=== PATIENT | female | born 1985 | race Caucasian/White ===

== ENCOUNTER 2020-09-02 07:53 | Outpatient (REF) | payer OTHER, SELFPAY ==
[2020-09-02 11:08] LABS: MANUAL DIFF FLAG NO
[2020-09-02 11:13] LABS: Basophils Absolute Auto 0.1 X10*3/uL (0.0-0.2); Eosinophils Absolute Auto 0.3 X10*3/uL (0.0-0.4); Eosinophils Percent Auto 3.9 % (0-4); Hematocrit 42.7 % (37-47); Imm Gran Abs Auto 0.03 X10*3/uL (0.00-0.03); Imm Gran Pct Auto 0.4 % (0.0-0.4); Lymphocytes Absolute Auto 2.4 X10*3/uL (1.2-4.9); Lymphocytes Percent Auto 33.7 % (20-40); Mean Corpuscular HGB Conc 32.8 g/dl (31.0-35.0); Mean Corpuscular Hemoglobin 29.2 pg (27.0-33.0); Mean Corpuscular Volume 89.1 fL (80-98); Mean Platelet Volume 10.1 fL (9.4-12.3); Monocytes Absolute Auto 0.7 X10*3/uL (0.1-1.2); Neutrophils Absolute Auto 3.8 X10*3/uL (2.0-8.3); Platelet Count 334 X10*3/uL (160-400); Red Blood Count 4.79 X10*6/uL (4.20-5.50); White Blood Count 7.2 X10*3/uL (4.8-10.8)
[2020-09-02 11:44] LABS: Alanine Aminotransferase 23 U/L (0-31); Albumin Level 4.4 g/dL (3.5-5.0); Alkaline Phosphatase 51 U/L (39-117); Anion Gap 15 (12-20); Aspartate Amino Transferase 20 U/L (5-31); Bilirubin Total 0.8 mg/dL (0.0-1.0); Blood Urea Nitrogen 11 mg/dL (9-16); Calcium 8.9 mg/dL (8.4-10.2); Carbon Dioxide 26 mmol/L (22-29); Chloride 105 mmol/L (96-108); Cholesterol 227 mg/dL; Estimated Glomerular Filt Rate > 60; Glucose Fasting 89 mg/dL (60-99); HDL Cholesterol 66 mg/dL; LDL Cholesterol Calculated 136 mg/dl; Potassium 4.6 mmol/l (3.3-5.1); Sodium 141 mmol/L (135-145); Total Protein 7.1 g/dL (6.5-8.0); Triglycerides 126 mg/dL
[2020-09-02 11:57] LABS: TSH reflex Free T4 2.53 mIU/mL (0.32-4.0)
== END 2020-09-02 07:54 | disposition home or self-care (01) ==
LOC: HO.HMGCLDS 07:53
PROVIDERS: PCP Internal Medicine; Visit Provider Internal Medicine
DX: Z00.01 Encounter for general adult medical examination with abnormal findings (principal); G35 Multiple sclerosis; G25.81 Restless legs syndrome
CPT/HCPCS: 36415; 80053; 80061; 84443; 85025

== ENCOUNTER 2020-12-27 16:00 | Outpatient (RCR) | payer OTHER, SELFPAY ==
--- NOTE | 2020-11-21 17:17 | MHC.PT.EP ---
[facility] [place] [facility] [place] [facility] [place] [facility] [address] Donell Cornejo [address] [phone] F: [phone] F: [phone] F: [phone] F: [phone] Physical Therapy Plan of Care Date of Evaluation: 11/21/20 Date of Surgery: N/A Diagnosis: MS; restless leg syndrome Assessment: pt presents to physical therapy with pain, decreased range of motion, decreased strength, impaired functional mobility, impaired postural awareness, and gait deviations. pt is a good candidate for skilled PT due to age, potential remediation of impairments, typical disease/condition progression and prognosis, comorbidities, and motivation. pt would benefit from tailored strengthening and stretching exercise program, functional training, gait training, postural re-training, neuromuscular re-education, modalities as needed for pain, equipment safety demonstration. Frequency and Duration: The patient will be seen 2x/wk for 5 wks Short Term Goals: pt will be I w/ HEP to promote self-management of condition. pt will improve B quad strength by 1 MMT grade to facilitate ease in stair climbing. Detention Goals: pt will report statistically significant improvement in self-reported outcome measure, LEFI, to promote return to PLOF. pt will tolerate >15 min of cardiovascular exercise of moderate intensity (~60-80% max) to indicate improvement of cardiovascular endurance. Treatment Plan: Modalities to reduce pain, spasms and effusion. Manual therapy to restore motion and function. Therapeutic exercise to improve strength and flexibility. Neuromuscular re-education for posture and balance. Therapeutic activities to return to functional activities of daily living. Electronically signed by: Le Bonilla PT, DPT Please sign and return to therapist. Thank you for your referral.
--- NOTE | 2021-01-20 11:09 | MHC.PT.DC ---
[facility] [place] Office [place] [facility] [place] Office [address] Donell Cornejo [address] [facility] [phone] F: [phone] F: [phone] F: [phone] F: [phone] Physical Therapy Discharge Report Diagnosis: MS; restless leg syndrome Date of Surgery: N/A Date of Evaluation: 11/21/20 Date of Discharge: 01/20/21 Treatments to Date: 3 Cancellations to Date: 7 No Shows to Date: 0 Discharge Status: Visit Non-compliance Discharge Summary: The patient was overall reporting less anxiety, improved mobility, and relaxation of restlessness after physical therapy treatment sessions. After her last visit she told us she would speak with her and call to schedule more visits. She has not followed-up with us in approximately 4 weeks. She is being discharged at this time. She has a home exercise program including a strengthening and yoga program to address both strength and mood. Electronically signed by: Le Bonilla PT, DPT Please sign and return to therapist. Thank you for your referral.
== END 2021-01-20 11:10 | disposition other institution (70) ==
LOC: HO.PT 16:00
PROVIDERS: PCP Internal Medicine; Visit Provider Internal Medicine
DX: M62.838 Other muscle spasm (principal); R53.81 Other malaise; G35 Multiple sclerosis
CPT/HCPCS: 97110; 97161; 97530

== ENCOUNTER 2021-03-08 12:44 | Outpatient (REF) | payer OTHER, SELFPAY ==
--- NOTE | ~2021-03-08 | XR_ITS ---
EXAMINATION: XR FOOT, LEFT CLINICAL INFORMATION: Pain COMPARISON: None TECHNIQUE: AP, lateral, and oblique views of the left foot. FINDINGS: The bones and soft tissues are normal. No fracture. Alignment is anatomic. Joint spaces are maintained. XR/XR foot LT min 3V IMPRESSION: Normal left foot.
[2021-03-08 14:33] LABS: Uric Acid 4.3 mg/dL (2.4-5.7)
[2021-03-08 14:39] LABS: Vitamin D 25-OH Total 46.5 ng/mL (>30)
[2021-03-08 14:57] LABS: Folate 12.8 ng/mL (> or = 4.0); Vitamin B12 294 pg/mL (200-900)
== END 2021-03-08 12:45 | disposition home or self-care (01) ==
LOC: HO.HMGCX 12:44
PROVIDERS: PCP Internal Medicine; Visit Provider Nurse Practitioner Family
DX: M79.672 Pain in left foot (principal); G35 Multiple sclerosis; M62.838 Other muscle spasm; R53.81 Other malaise; R53.83 Other fatigue
CPT/HCPCS: 36415; 73630; 82306; 82607; 82746; 84550

== ENCOUNTER 2021-08-02 14:44 | Outpatient (REF) | payer OTHER, SELFPAY ==
--- NOTE | ~2021-08-02 | FL_ITS ---
PROCEDURE: XR BARIUM SWALLOW CLINICAL INFORMATION: Dysphagia. COMPARISON: None TECHNIQUE: Modified barium swallow was performed in lateral projection with patient sitting in presence of speech therapist and administration of various consistencies of food coated with barium. FINDINGS: Following oral administration of thin, thick barium and various consistencies of barium including solid food by the speech therapist there is normal propagation of bolus from the oral cavity through the pharynx, esophagus into stomach without any evidence of obstruction, narrowing or stricture. No laryngeal penetration or aspiration seen. On AP view oral administration of solid food with barium revealed normal propagation of bolus without any indentation or mass effect along the lateral pharyngeal wall. FLUOROSCOPY TIME: 1.0 minute. DOSE AREA PRODUCT: 0.852 uGy-m2 (microgray-meter squared). FL/FL barium swallow modified IMPRESSION: Unremarkable modified barium swallow. Correlate with speech therapy results.
--- NOTE | 2021-08-02 17:45 | MHC.SL.IMP ---
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 Comorbidities: Depression with anxiety Malaise and fatigue Muscle spasm of both lower legs Optic neuritis Restless leg syndrome Retina hole Tear of meniscus of left knee On control SURGICAL HISTORY: Arthroscopic knee surgery Breast augmentation Oral surgery Tonsillectomy Appendectomy Primary Speech & Language Diagnosis: R13.12 Oropharyngeal Phase Dysphagia Reason for Today's Visit: 60700 Modified Barium Swallow Study Pre-evaluation Dietary Consistencies: Regular Pre-evaluation Liquid Consistency: Thin Pre-evaluation Medication Administration: Whole with Liquid Medical History: Modified Barium Swallow Study Fluoroscopic Evaluation of Swallowing Function CPT Code 93563 Evaluation Year: 2020 Reason for Study: Patient reports difficulty swallowing. Referring Physician: Yue Denny MD Evaluating Clinician: Natalie Horner M.A. [facility]-NUCLEAR MEDICAL TECHNOLOGIST Study Number: 1 Patient Name: Gavi Ray Status: Outpatient, Ambulatory Age: 36 Gender: Female MEDICAL HISTORY: Primary (admitting) Diagnosis: Multiple Sclerosis on Ocrevus Comorbidities: Depression with anxiety Malaise and fatigue Muscle spasm of both lower legs Optic neuritis Restless leg syndrome Retina hole Tear of meniscus of left knee On control SURGICAL HISTORY: Arthroscopic knee surgery Breast augmentation Oral surgery Tonsillectomy Appendectomy Current (pre-evaluation) Intake/Diet: Route: PO Diet Grade: Regular Liquid Consistencies: Thin Pre-Study Functional Oral Intake Scale (FOIS): 7- Total oral intake with no restrictions Pain: None reported at time of study SUBJECTIVE: Patient is a 36 year old female with multiple sclerosis who was referred for this modified barium swallow study (MBSS) by her primary care physician, Yue Denny M.D. due to patient report of difficulty swallowing solids and liquids, which is intermittent. Patient reports the sensation that there is a foreign body in her throat and irritation on the left side of her throat. She reports, ?It does not go down smoothly,? and that she ?can feel it click? when she swallows. Patient reports that at times this throat irritation makes her cough and then it becomes difficult to swallow. Patient reports she can eat and drink and that she feels this sensation more so when she is not eating or drinking. Patient denies pain when swallowing. Patient reports onset of these difficulties one year ago. Oral Motor Exam Facial Symmetry: Symmetrical Mouth Occlusion: Normal Oral-Facial Teeth Characteristics: Intact/Normal Oral-Facial Lip Pucker Description: Normal Oral-Facial Smile (Lips) Description: Normal Oral-Facial Puff Cheeks Description: Normal Tongue Size: Normal Tongue Frenum Length: Normal Tongue Excursion Description: Normal Tongue Range of Movement Description: Normal Tongue Speed of Movement Description: Normal Tongue Strength of Movement (against opposing pressure): Normal Tongue Movement Characteristics: Normal/Absent Is patient able to manage secretions?: Yes Is patient able to produce volitional cough?: Yes Food and Liquid Trials: Oral Impairment: Lip Closure: 0=No labial escape Oral Impairment: Tongue Control During Bolus Hold: 0=Cohesive bolus between tongue to palatal seal Oral Impairment: Bolus Preparation/Mastication: 0=Timely and efficient chewing and mashing Oral Impairment: Bolus Transport/Lingual Motion: 0=Brisk tongue motion Oral Impairment: Oral Residue: 1=Trace residue lining oral structures Oral Impairment:Initiation of Pharyngeal Swallow: 0=Bolus head at posterior angle of ramus (first hyoid excursion) Pharyngeal Impairment: Soft Palate Elevation: 0=No bolus between soft palate (SP)/pharyngeal wall (PW) Pharyngeal Impairment: Laryngeal Elevation: 0=Complete superior movement of thyroid cartilage (see description) Pharyngeal Impairment: Anterior Hyoid Excursion: 0=Complete anterior movement Pharyngeal Impairment: Epiglottic Movement: 0=Complete inversion Pharyngeal Impairment: Laryngeal Vestibular Closure:: 0=Complete: no air/contrast in laryngeal vestibule Pharyngeal Impairment: Pharyngeal Stripping Wave: 0=Present: complete Pharyngeal Impairment: Pharyngeal Contraction: 0=Complete Pharyngeal Impairment: Pharyngoesophageal Segment Openin=Partial distention/partial duration: partial obstruction of flow Pharyngeal Impairment: Tongue Base (TB) Retraction: 2=Narrow column of contrast/air between TB and posterior PW Pharyngeal Impairment: Pharyngeal Residue: 1=Trace residue within or on pharyngeal structures Pharyngeal Impairment: Esophageal Clearance Upright Position: Did not test Impressions and Recommendations Clinical Observations: OBJECTIVE: Time-out: performed at 02:45 Evaluation Start: 02:30; Stop: 02:40 Patient Positioning: Seated 70-90 degrees Viewing Planes: LATERAL ONLY Contrast: MBSImP? Standardized Protocol using commercially prepared, standardized Barium viscosities, including: Varibar? THIN LIQUID (40% w/v, <15 cps) , 1/2 Shortbread Cookie (1 x1 x.25 ) MBSImP ID: [id number] MBSImP Results: Lip closure for intraoral bolus containment resulted in no labial escape. Tongue control during bolus hold maintained a cohesive bolus held between tongue to palate seal. Bolus preparation and mastication resulted in timely and efficient chewing and mashing. Bolus transport/lingual motion was with brisk tongue motion. Oral residue was a trace, lining oral structures. Initiation of the pharyngeal swallow occurred as the bolus head reached the posterior angle of the mandibular ramus. Soft palate elevation resulted in no bolus between the soft palate and the pharyngeal wall. Laryngeal elevation demonstrated complete superior movement of the thyroid cartilage with complete approximation of the arytenoids to the epiglottic petiole. Anterior hyoid excursion demonstrated complete anterior movement. Epiglottic movement resulted in complete inversion. Laryngeal vestibular closure was complete, as indicated by no air or contrast within the laryngeal vestibule at the height of the swallow. Pharyngeal stripping wave was present and complete. Pharyngeal contraction was complete. Pharyngoesophageal segment opening demonstrated partial distension/partial duration, with partial obstruction of bolus flow. Tongue base retraction allowed a narrow column of contrast or air between the retracted tongue base and the posterior pharyngeal wall. Pharyngeal residue was a trace within or on pharyngeal structures. Esophageal clearance in the upright position could not be assessed due to logistical reasons not related to physiologic impairment. Oral Impairment Score: 0 Pharyngeal Impairment Score: 3 Esophageal Impairment Score: --- (absence of score, component 17) Laryngeal Penetration and Aspiration: Neither penetration nor aspiration was observed in today's study with Cookie, Thin. ASSESSMENT: Clinician Assessment: This exam was conducted by a multidisciplinary team, which included a radiologist, radiology technicians, and a speech language pathologist. Patient was able to feed herself without difficulty. Patient was seated in optimal 90 degree position in chair for lateral and AP views. Patient trialed the following liquid and solid consistencies: -5 mL thin liquid barium -cup sip with bolus hold thin liquid barium -consecutive cup sip thin liquid barium -pureed solid (mixture applesauce with barium paste) -ground solid (mixture applesauce with barium paste) -Baylee Doone cookie (regular solid coated with barium paste) No evidence of aspiration or penetration. Oral and pharyngeal clearance deemed to be within functional limits. This exam was unremarkable. Liquid Intake Recommendation: Thin Dietary Recommendations: Regular Medication Administration: Whole with Liquid Compensatory Strategies Recommended: Sitting Upright (90 deg) Small Bites and Sips Alternate Liquids/Solids Rate of Ingestion Change Supervision during eating and or drinking: None Needed Recommendation for Speech Therapy: NA:Typical Evaluation Intake Recommendations: Route: PO Diet Grade: Regular Liquid Consistencies: Thin Post-Study Functional Oral Intake Scale (FOIS): 7- Total oral intake with no restrictions Patient is recommended to resume unmodified diet REGULAR solids and THIN liquids. Further ST intervention is not warranted. Patient may benefit from a consultation with an greige goods inspector due to reports of throat irritation. Suggested Referrals: The patient might benefit from a referral to: Otolaryngology Indication for Referral: Reports of irritation on left side of throat Therapy Recommendations: Therapy will be discontinued Prognosis for Improvement: The prognosis for the patient to meet nutritional needs by mouth is excellent based on WFL exam. Clinician - Supplemental, Miscellaneous Communication: It is important to note MBSS objective studies are snapshots in time and Patient function might vary with factors such as time of day or concomitant medical conditions. For this reason, the final treatment plan for this patient should rest with their medical care team. Additional recommendations should be considered with the totality of the Patient in mind. Thank for the opportunity to participate in the care of this patient. If you have any questions about the content of this report, please contact the [facility] at [facility]. Education: Education regarding findings from today's study and plans for therapy were provided to Patient only through Verbal Instruction. Understanding was expressed by the Patient only. It Telecom Technician Clinician/Clinical Fellow: No Supervisory Statement: N/A Speech Language Pathologist: Natalie Horner M.A., CCC-NUCLEAR MEDICAL TECHNOLOGIST
== END 2021-08-02 14:45 | disposition home or self-care (01) ==
LOC: HO.XRAY 14:44
PROVIDERS: Visit Provider Internal Medicine
DX: R13.10 Dysphagia, unspecified (principal)
CPT/HCPCS: 74230; 92611